=== PATIENT | male | born 1995 | race Caucasian/White ===

== ENCOUNTER 2016-07-31 16:27 | Inpatient (IN) | payer BC ==
[~2016-07-31] VITALS: Ht 180.3 cm; Wt 76.8 kg
[2016-07-31] MEDS ORDERED: AMPICILLIN/SULBACTAM SOD INJ 3,000 MG in SODIUM CHLORIDE 0.9% 100ML 100 ML IV STA (18:46)
[2016-07-31] MEDS ORDERED: VALA500T60 PO (19:08)
[2016-07-31] MEDS ORDERED: MIRT45TA PO (19:08)
[2016-07-31 19:09] LABS: BASO % 0.3 %; BASO ABS # 0.03 K/uL (0-0.2); COMPLETE YES; EOS % 0.2 %; HEMATOCRIT 43.2 % (42-52); IG% 0.1 %; LYMPH % 19.8 %; LYMPH ABS # 1.79 K/uL (1.2-3.4); MEAN CELL VOLUME 93.5 fL (80-100); MEAN CORPUSCULAR HEMOGLOBIN 33.1 pg (25-34); MEAN CORPUSCULAR HGB CONC 35.4 g/dl (32-36); MEAN PLATELET VOLUME 10.5 fL (7.4-10.4); NEUT % 65.6 %; PLATELET COUNT 287 K/uL (130-400); RED BLOOD COUNT 4.62 M/uL (4.7-6.1); WHITE BLOOD COUNT 9.04 K/uL (4.8-10.8)
[2016-07-31] MEDS ORDERED: OPTIRAY 320 IV PRN (19:15)
[2016-07-31 19:18] LABS: ISTAT CREATININE 1.3 mg/dl (0.6-1.3); ISTAT HEMOGLOBIN 15.6 g/dl (14.0-18.0); ISTAT IONIZED CALCIUM 1.23 mmol/l (1.12-1.32)
[2016-07-31 19:26] LABS: BUN/CREATININE RATIO 10.4 (10-20); CALCIUM 9.6 mg/dl (8.5-10.1); CREATININE 1.3 mg/dl (0.60-1.40); POTASSIUM 4.2 mmol/L (3.5-5.1)
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
[2016-07-31] MEDS ORDERED: SODIUM CHLORIDE 0.9% 500ML 500 ML IV STA (20:57)
[2016-07-31] MEDS ORDERED: ACETAMINOPHEN 325 MG TAB PO PRN (22:30)
[2016-07-31] MEDS ORDERED: ZOLPIDEM TARTRATE 5 MG TAB PO PRN (22:30)
[2016-07-31] MEDS ORDERED: ONDANSETRON INJ 2 MG/ML 2 ML VIAL IV PRN (22:30)
[2016-07-31] MEDS ORDERED: ALUMINUM/MAGNESIUM/SIMETH (MAALOX MAX) 30 ML UDC PO PRN (22:30)
[2016-07-31] MEDS ORDERED: MAGNESIUM HYDROXIDE SUSP 30 ML UDC PO PRN (22:30)
[2016-07-31] MEDS ORDERED: TRAMADOL HCL 50 MG TAB PO PRN (22:30)
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
[2016-07-31 23:25] VITALS: BP 110/85; PULSE 78; TEMP 37.3; O2SAT 100; Ht 180.3 cm; Wt 76.8 kg
[2016-07-31] MEDS ORDERED: POLYETHYLENE (MIRALAX) 17 GM PACK PO PRN (23:45)
[2016-08-01] VITALS: BP 128/89; PULSE 71; TEMP 37.1; O2SAT 100
[2016-08-01] MEDS: AMPICILLIN/SULBACTAM SOD INJ 3,000 MG in SODIUM CHLORIDE 0.9% 100ML 100 ML IV SCH ×5 (00:44→23:42)
[2016-08-01 07:52] VITALS: BP 94/59; PULSE 59; TEMP 36.4; O2SAT 99
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
[2016-08-01] MEDS ORDERED: AMOX1TAB43 PO (10:43)
[2016-08-01] MEDS ORDERED: AMOXICILLIN/CLAVULANATE TAB 875 MG TAB PO SCH (12:00)
[2016-08-01 15:27] VITALS: BP 120/73; PULSE 57; TEMP 36.9; O2SAT 98
[2016-08-01 16:00] VITALS: O2SAT 98
[2016-08-01] MEDS: CLINDAMYCIN IV 600 MG in DEXTROSE 5% ADD-VANTAGE 50ML 50 ML IV SCH (18:44)
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
[2016-08-01 23:43] VITALS: BP 109/75; PULSE 70; TEMP 37.2; O2SAT 100
[2016-08-02] MEDS: CLINDAMYCIN IV 600 MG in DEXTROSE 5% ADD-VANTAGE 50ML 50 ML IV SCH (02:04)
[2016-08-02] MEDS: AMPICILLIN/SULBACTAM SOD INJ 3,000 MG in SODIUM CHLORIDE 0.9% 100ML 100 ML IV SCH (05:23)
[2016-08-02 06:45] LABS: HEMATOCRIT 37.9 % (42-52); MEAN CELL VOLUME 90.7 fL (80-100); MEAN CORPUSCULAR HEMOGLOBIN 31.8 pg (25-34); MEAN CORPUSCULAR HGB CONC 35.1 g/dl (32-36); MEAN PLATELET VOLUME 10.3 fL (7.4-10.4); PLATELET COUNT 241 K/uL (130-400); RED BLOOD COUNT 4.18 M/uL (4.7-6.1)
[2016-08-02 07:04] VITALS: BP 94/56; PULSE 56; TEMP 36.4; O2SAT 94
[2016-08-02 08:00] VITALS: O2SAT 94
[2016-08-02] MEDS ORDERED: AMOX875T PO (08:24)
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
[2016-08-02 09:10] VITALS: BP 94/56; PULSE 56; TEMP 36.4; O2SAT 94
== END 2016-08-02 09:34 | disposition home or self-care (01) | DRG 603 ==
LOC: ENRESERVDT → ENRESERVTM → C.EDB 16:29 → C.MS2W 22:21
PROVIDERS: ADMIT Internal Medicine; ATTEND Internal Medicine
DX: L03.213 Periorbital cellulitis (principal); Y04.1XXA Assault by human bite, initial encounter; F17.210 Nicotine dependence, cigarettes, uncomplicated; Z79.899 Other long term (current) drug therapy

== ENCOUNTER 2017-07-23 18:55 | Emergency (ER) | payer BC ==
[~2017-07-23] VITALS: Ht 180.3 cm; Wt 84.9 kg
[~2017-07-23 18:55] MED LIST: MIRT45TA PO
[2017-07-23] MEDS ORDERED: VALA500T60 PO (19:08)
[2017-07-23 19:18] VITALS: TEMP 36.5; Ht 180.3 cm; Wt 84.9 kg
[2017-07-23] MEDS ORDERED: LIDOCAINE/EPINEPH/TETRACAINE 1 EA SYR EXT STA (19:28)
--- NOTE | 2017-07-23 19:55 | EMERGENCY ROOM VISIT NOTE ---
ED Visit Note First contact with patient: 19:22 CHIEF COMPLAINT: Facial laceration HISTORY OF PRESENT ILLNESS: This 22-year-old male patient presents emergency department complaining of a laceration to the left eyebrow that occurred during wrestling practice today. He hit his head off the map.. There was no loss of consciousness, vomiting, or unusual behavior afterwards. Denies neck pain. No headache, nausea, or blurred vision. There is no bleeding. The patient rates the pain as minimal and 1/10. The patient's tetanus shot is up to date. REVIEW OF SYSTEMS: A 6 system review of systems was completed with positives and pertinent negatives listed in the HPI. ALLERGIES: No known drug allergies MEDICATIONS: Reviewed PMH: Anxiety SOCIAL HISTORY: Occasional alcohol use. He does not smoke cigarettes. He has a [employer] student. PHYSICAL EXAM: Vital Signs: Reviewed Nurse's notes, vital signs stable. GENERAL : 22-year-old male, in no acute distress, well-developed, well-nourished. NEURO : The patient is alert and oriented to person place and time. No focal neurological defects. EYES: Pupils are round, equal, and react to light. EOMI. EARS: No hemotympanum. NECK: Supple. No cervical spine tenderness. FACE: No facial bone tenderness or mandibular tenderness. The mouth can open fully. The teeth are well aligned. No loose or chipped teeth. SKIN: There is a 2 cm laceration superior to the left eyebrow. The edges gape apart with traction. There is no active bleeding and no foreign material in the wound. There are no deep structures present. EMERGENCY DEPARTMENT COURSE: I examined the patient. Let gel was applied to the wound and allowed to sit for 40 minutes. Verbal consent was obtained to perform the procedure. Using sterile technique the wound was cleansed with Betadine. The area was sterilely draped. the wound was copiously irrigated under pressure with sterile saline. The wound was explored and was as described above. The laceration was repaired using 4 simple interrupted 6-0 nylon sutures with the wound edges being well approximated. The patient tolerated the procedure well. Hemostasis was achieved. The area was cleaned with sterile saline and dressed with bacitracin ointment. The patient was discharged home in good condition. DIAGNOSIS: Facial laceration DISCHARGE INSTRUCTIONS: Keep wound clean. It is okay to gently wash the area with soapy water. Do not submerse it in water for long periods of time such as swimming, going in hot tubs or taking baths until the sutures come out. Do not allow any crusting or dried blood to accumulate on sutures. If this occurs, use a 1:1 solution of hydrogen peroxide/water on a Q-tip to clean the wound. Use an antibiotic ointment for 3 days, then let wound dry. Suture removal in 7 days. Return sooner for any signs of infection (increasing redness, swelling, drainage). Ice and elevate for swelling and pain. Ibuprofen 600 mg and Tylenol 1000 mg every 6 hrs for pain. Avoid sparring/wrestling for 2 weeks Light exercise is okay starting tomorrow This chart was completed in part utilizing [employer] Speech Voice Recognition software. Attempts were made to minimize the grammatical errors, random word insertions, pronoun errors and incomplete sentences. Any formal questions or concerns about the content, text or information contained within the body of this dictation should be directly addressed to the provider for clarification.
[2017-07-23] MEDS ORDERED: CLON0.5T3 PO (19:57)
[2017-07-23] MEDS ORDERED: ZOLP10TA PO (19:57)
[2017-07-23] MEDS ORDERED: CITA10TA4 PO (19:57)
[2017-07-23] MEDS ORDERED: XYLOCAINE 1%/SOD BICARB 20 ML VIAL INFIL ONE (20:02)
[2017-07-23 21:02] VITALS: BP 124/78; PULSE 72; O2SAT 99
== END 2017-07-23 21:03 | disposition home or self-care (01) ==
LOC: C.EDB 18:57 → C.EDD 21:03
DX: S01.112A Laceration without foreign body of left eyelid and periocular area, initial encounter (principal); W22.09XA Striking against other stationary object, initial encounter; Y93.72 Activity, wrestling; F41.9 Anxiety disorder, unspecified